=== PATIENT | female | born 1995 ===

== ENCOUNTER 2020-03-05 05:35 | Outpatient (RCR) | payer MEDICAID ==
[~2020-03-05] VITALS: Ht 170 cm; Wt 129.5 kg
[~2020-03-05 05:35] MED LIST: PREN1TAB79 PO
[2020-03-05] MEDS ORDERED: LABE200T7 PO ×2 (20:37)
[2020-03-09] MEDS ORDERED: DCS100C PO (07:09)
[2020-03-09] MEDS ORDERED: ACHD5005 PO (07:09)
[2020-03-09] MEDS ORDERED: IBUP-844 PO (07:09)
== END 2020-03-05 10:10 | disposition home or self-care (01) ==
LOC: EDBD → PREOP 05:35
PROVIDERS: ATTEND Obstetrics & Gynecology
DX: Z01.812 Encounter for preprocedural laboratory examination (principal); Z20.828 Contact with and (suspected) exposure to other viral communicable diseases
CPT/HCPCS: 87635

== ENCOUNTER 2020-03-05 18:26 | Outpatient (CLI) | payer MEDICAID ==
[2020-03-05] VITALS (7 sets, daily range): BP systolic 133–170; BP diastolic 70–82
[~2020-03-05] VITALS: Ht 170.2 cm; Wt 135.0 kg
--- NOTE | 2020-03-05 18:40 | NUR ---
SAMY TORRES presented to unit via ambulation from ED, accompanied by s/o, with c/o HTN. SAMY TORRES weighed, gowned, voided, and to bed. EFHM and TOCO applied, VS taken. SAMY TORRES oriented to bed controls, call light, TV, heat, and A/C controls.
[2020-03-05] MEDS ORDERED: LABETALOL 200 MG (NORMODYNE) TAB PO ONE ×2 (19:14→19:15)
--- NOTE | 2020-03-05 19:15 | NUR ---
Pt sent over from Dr's office for elevated b/p. Pt is a repeat c/s of 's scheduled for Monday. on unit. Goes into pt's room. Assessment performed. Order for labs and labetalol received. Plan of care discussed with pt. Pt denies any pre-e symptoms.
[2020-03-05 19:28] LABS: BASOPHILS % (AUTO) 0 % (0-10); EOSINOPHILS # (AUTO) 0.4 10^3/uL (0.0-0.3); EOSINOPHILS % (AUTO) 3 % (0-10); HEMATOCRIT 34 % (35-52); HEMOGLOBIN 11.1 g/dL (11.5-16.0); LYMPHOCYTES # (AUTO) 2.5 10^3/uL (1.0-4.0); LYMPHOCYTES % (AUTO) 20 % (12-44); MEAN CORPUSCULAR HEMOGLOBIN 29 pg (25-34); MEAN CORPUSCULAR HGB CONC 33 g/dL (32-36); MEAN CORPUSCULAR VOLUME 86 fL (80-99); MEAN PLATELET VOLUME 11.7 fL (9.0-12.2); MONOCYTES # (AUTO) 0.7 10^3/uL (0.0-1.0); MONOCYTES % (AUTO) 6 % (0-12); NEUTROPHILS # (AUTO) 8.8 10^3/uL (1.8-7.8); NEUTROPHILS % (AUTO) 70 % (42-75); PLATELET COUNT 247 10^3/uL (130-400); WHITE BLOOD COUNT 12.5 10^3/uL (4.3-11.0)
[2020-03-05 19:52] LABS: ALANINE AMINOTRANSFERASE 14 U/L (0-55); ALBUMIN 2.9 GM/DL (3.2-4.5); ALKALINE PHOSPHATASE 119 U/L (40-136); BILIRUBIN,TOTAL 0.2 MG/DL (0.1-1.0); BUN/CREATININE RATIO 10; CALCIUM 8.5 MG/DL (8.5-10.1); CARBON DIOXIDE 19 MMOL/L (21-32); CHLORIDE 108 MMOL/L (98-107); CREATININE SERUM 0.67 MG/DL (0.60-1.30); GFR ESTIMATED > 60; GLUCOSE 91 MG/DL (70-105); POTASSIUM 3.7 MMOL/L (3.6-5.0); SODIUM 136 MMOL/L (135-145); TOTAL PROTEIN 6.3 GM/DL (6.4-8.2); URIC ACID 5.1 MG/DL (2.6-7.2)
--- NOTE | 2020-03-05 20:30 | NUR ---
Labs sent to . discharge order received.
[2020-03-05] MEDS ORDERED: LABE200T7 PO ×2 (20:37)
--- NOTE | 2020-03-05 20:44 | NUR ---
Discharge instructions reviewed with patient. Pt verbalized understanding. Signature sheet signed, placed on chart. Pt denies needing wheelchair. Ambulating off unit to private vehicle at time with s.o. at side. No signs of distress noted. New prescription called to pharmacy.
--- NOTE | 2020-03-06 07:56 | Physician Query-Final Dx ---
ÁNGEL PASTOR 03/06/20 0756: Clinic Account Progress/Dx Physician Query: Please give diagnosis Please include # weeks gestation Date of Service Mar 05, 2020 at 18:26 BRIAN MARTINEZ DO 03/06/20 1430: Clinic Account Progress/Dx DIAGNOSIS: Diagnosis 38 WEEK IUP Non reactive NST in office Hx of Pre E w/ elevated BPs in office. ÁNGEL PASTOR Mar 06, 2020 07:56 BRIAN MARTINEZ DO Mar 06, 2020 14:30
[2020-03-09] MEDS ORDERED: ACHD5005 PO (07:09)
[2020-03-09] MEDS ORDERED: DCS100C PO (07:09)
[2020-03-09] MEDS ORDERED: IBUP-844 PO (07:09)
== END 2020-03-05 20:44 | disposition home or self-care (01) ==
LOC: WSo 18:26 → LDRP 18:35 → WSo 20:44
PROVIDERS: ATTEND Family Medicine
DX: Z34.93 Encounter for supervision of normal pregnancy, unspecified, third trimester (principal); Z3A.36 36 weeks gestation of pregnancy
CPT/HCPCS: 36415; 80053; 82570; 83615; 84156; 84550; 85025; 99213

== ENCOUNTER 2020-03-09 06:03 | Inpatient (IN) | payer MEDICAID ==
[~2020-03-09] VITALS: Ht 170.2 cm; Wt 133.5 kg
[2020-03-09] VITALS (9 sets, daily range): BP systolic 104–168; BP diastolic 57–97
[~2020-03-09 06:03] MED LIST changes: +LABE200T7 PO
--- NOTE | 2020-03-09 06:05 | NUR ---
SAMY TORRES presented to unit via from ED, accompanied by , for repeat section. SAMY TORRES weighed, gowned, voided, and to bed. EFHM and TOCO applied, VS taken. SAMY TORRES oriented to bed controls, call light, TV, heat, and A/C controls.
[2020-03-09] MEDS ORDERED: FAMOTIDINE 20MG/2ML IV (PEPCID) ONE (06:12)
[2020-03-09] MEDS ORDERED: CITRIC ACID/SOB CIT (BICITRA) 30 ML UDC ONE (06:12)
[2020-03-09] MEDS ORDERED: AMPICILLIN 2,000 MG/14.8 ML (IV USE) ONE (06:12)
[2020-03-09] MEDS ORDERED: METOCLOPRAMIDE INJ 10 MG/2 ML (REGLAN) ONE (06:14)
[2020-03-09] MEDS ORDERED: ceFAZolin 2 GM IV Premixed 50 ML IV ONE (06:22)
[2020-03-09 06:39] LABS: BASOPHILS # (AUTO) 0.1 10^3/uL (0.0-0.1); BASOPHILS % (AUTO) 1 % (0-10); EOSINOPHILS # (AUTO) 0.4 10^3/uL (0.0-0.3); EOSINOPHILS % (AUTO) 3 % (0-10); HEMATOCRIT 34 % (35-52); HEMOGLOBIN 11.2 g/dL (11.5-16.0); LYMPHOCYTES # (AUTO) 2.8 10^3/uL (1.0-4.0); LYMPHOCYTES % (AUTO) 23 % (12-44); MEAN CORPUSCULAR HEMOGLOBIN 28 pg (25-34); MEAN CORPUSCULAR HGB CONC 33 g/dL (32-36); MEAN CORPUSCULAR VOLUME 85 fL (80-99); MEAN PLATELET VOLUME 11.5 fL (9.0-12.2); MONOCYTES # (AUTO) 0.8 10^3/uL (0.0-1.0); MONOCYTES % (AUTO) 7 % (0-12); NEUTROPHILS # (AUTO) 8.2 10^3/uL (1.8-7.8); NEUTROPHILS % (AUTO) 67 % (42-75); PLATELET COUNT 246 10^3/uL (130-400); WHITE BLOOD COUNT 12.3 10^3/uL (4.3-11.0)
[2020-03-09] MEDS ORDERED: fentaNYL INJECTION 100 MCG/2 ML AMP ONE (07:01)
[2020-03-09] MEDS ORDERED: OXYTOCIN PRE-MIX DRIP 1,000 ML IV ONE (07:01)
--- NOTE | 2020-03-09 07:05 | History & Physical-OB ---
OB - Chief Complaint & HPI Date/Time Date of Admission: Date of Admission: Mar 09, 2020 at 06:03 Date seen by a Provider: Mar 09, 2020 Time Seen by a Provider: 07:00 Chief Complaint/History OB-Reason for Admission/Chief: Section Hx : 3 Hx Para: 2 Expected Date of Delivery: Mar 14, 2020 Gestational Age in Weeks: 39 Gestational Age in Days: 2 Indication for : desires repeat Admission Nurse Assessment Rev: Yes History of Labs [facility] care Allergies and Home Medications Allergies Coded Allergies: No Known Drug Allergies (Unverified , 03/04/20) Home Medications Labetalol HCl 200 Mg Tablet, 200 MG PO BID Prescribed by: NATHANIEL SCHROEDER on 03/05/202036 Vit W-Ca,Fe,FA(<1 mg) 1 Each Tablet, 1 EACH PO DAILY, (Reported) Patient Home Medication List Home Medication List Reviewed: Yes OB - History Hx of Present Care: Yes Ultrasounds: Normal mid trimester US Obstetrical Complications: None Medical Complications: None Delivery History Adverse Rxn to Tranfusion: No (N/A) Patient Past Medical History n/a Social History/Family History HIV/AIDS: No Sexually Transmitted Disease: No 2nd Hand Smoke Exposure: No Immunizations Date of Influenza Vaccine: Jan 26, 2020 OB - Admission Exam Physical Exam HEENT: NCAT Heart: Rhythm Normal Lungs: Clear Abdomen: Gravid Extremities: Normal Reflexes: Normal Heart Rate: 130's Accelerations: Accelerations Present Decelerations: No Decelerations Short Term Variability: Present Care Home Variability: Average (6-25) Contractions on Admission: >10 Minutes Apart Intensity: Mild Labs Laboratory Tests Test 03/09/20 06:25 Range/Units White Blood Count 12.3 H 4.3-11.0 10^3/uL Red Blood Count 4.02 3.80-5.11 10^6/uL Hemoglobin 11.2 L 11.5-16.0 g/dL Hematocrit 34 L 35-52 % Mean Corpuscular Volume 85 80-99 fL Mean Corpuscular Hemoglobin 28 25-34 pg Mean Corpuscular Hemoglobin Concent 33 32-36 g/dL Red Cell Distribution Width 13.4 10.0-14.5 % Platelet Count 246 130-400 10^3/uL Mean Platelet Volume 11.5 9.0-12.2 fL Immature Granulocyte % (Auto) 1 % Neutrophils (%) (Auto) 67 42-75 % Lymphocytes (%) (Auto) 23 12-44 % Monocytes (%) (Auto) 7 0-12 % Eosinophils (%) (Auto) 3 0-10 % Basophils (%) (Auto) 1 0-10 % Neutrophils # (Auto) 8.2 H 1.8-7.8 10^3/uL Lymphocytes # (Auto) 2.8 1.0-4.0 10^3/uL Monocytes # (Auto) 0.8 0.0-1.0 10^3/uL Eosinophils # (Auto) 0.4 H 0.0-0.3 10^3/uL Basophils # (Auto) 0.1 0.0-0.1 10^3/uL Immature Granulocyte # (Auto) 0.1 0.0-0.1 10^3/uL OB - Assessment/Plan/Diagnosis Assessment Assessment: section Admission Dx 24 yo @ 39.2 Previous x 2 Admission Status: Inpatient Order (span 2 midnights) Reason for Inpatient Admission: Repeat Plan Plan: Section BRIAN MARTINEZ DO Mar 09, 2020 07:05
--- NOTE | 2020-03-09 07:08 | Discharge Inst-Women's Service ---
Discharge Inst-Women's Serv Depart Medication/Instructions New, Converted or Re-Newed RX: RX on Chart Final Diagnosis POD 2 RLTCS Problems Reviewed?: Yes Consults/Follow Up Additional Follow Up: Yes Orders/Referrals Dr. Luo in 7-[address] Perez in 6 weeks. Activity Activity: Activity as Tolerated Driving Instructions: No Driving for 1 Week NO SMOKING: NO SMOKING Nothing Inside Vagina: No Douching, No [place], No Tampons Diet Discharge Diet: No Restrictions Symptoms to Report to : Bleeding Excessive, Pain Increased, Fever Over 101 Degrees F, Vaginal Bleeding Increase, Questions/Concerns For Any Problems or Questions: Contact Your Physician Skin/Wound Care Infection Signs and Symptoms: Increased Redness, Foul Odor of Wound, Increased Drainage, Skin Itchy or Has a Rash, Increased Swelling, Temperature Above 101 F Operative Area Clean and Dry: Keep Incision Clean/Dry Stitches/Palma/Dermabond: Dermabond, Care of Stitches Bathing Instructions: BRIAN Oates DO Mar 09, 2020 07:08
[2020-03-09] MEDS ORDERED: ACHD5005 PO (07:09)
[2020-03-09] MEDS ORDERED: IBUP-844 PO (07:09)
[2020-03-09] MEDS ORDERED: DCS100C PO (07:09)
[2020-03-09] MEDS ORDERED: TETANUS,DIPTH,PERTUSS P/F (BOOSTRIX) 0.5 ML VIAL IM SCH (07:15)
[2020-03-09] MEDS ORDERED: MEASLES,MUMPS,RUBELLA 1 EA INJ SC SCH (07:15)
[2020-03-09] MEDS ORDERED: ONDANSETRON 4 MG/2 ML (SDV) Z0FRAN IVP PRN (07:15)
[2020-03-09] MEDS ORDERED: HYDROcodone/APAP 5 MG/325 MG (LORTAB) TAB PO PRN (07:15)
[2020-03-09] MEDS ORDERED: HYDROmorphone 2 MG/ML VIAL (DILAUDID) ONE (07:20)
[2020-03-09] MEDS ORDERED: ONDANSETRON 4 MG/2 ML (SDV) Z0FRAN ONE (07:20)
[2020-03-09] MEDS ORDERED: OXYTOCIN PRE-MIX DRIP 500 ML IV ONE (07:21)
[2020-03-09] MEDS ORDERED: KETOROLAC 30 MG/ML VIAL ONE (07:21)
[2020-03-09] MEDS ORDERED: PHENYLEPHRINE 100 MCG/ML 10 ML (ANESTHESIA) SYR ONE (07:59)
[2020-03-09] MEDS ORDERED: BUPIVACAINE 0.5% 30 ML (SENSORCAINE) VIAL ONE (08:14)
[2020-03-09] MEDS ORDERED: CATHETER FLUSH 10 ML SYR IV PRN (08:30)
[2020-03-09] MEDS ORDERED: LACTATED RINGERS 1,000 ML IV PRN (08:30)
[2020-03-09] MEDS ORDERED: METOCLOPRAMIDE INJ 10 MG/2 ML (REGLAN) IV ONE (08:30)
[2020-03-09] MEDS ORDERED: FAMOTIDINE 20MG/2ML IV (PEPCID) IV ONE (08:30)
[2020-03-09] MEDS ORDERED: CITRIC ACID/SOB CIT (BICITRA) 30 ML UDC PO ONE (08:30)
[2020-03-09] MEDS: OXYTOCIN PRE-MIX DRIP 500 ML IV SCH ×2 (08:53→14:51)
[2020-03-09] MEDS: KETOROLAC 30 MG/ML VIAL IV SCH ×3 (08:54→21:26)
--- NOTE | 2020-03-09 12:07 | NUR ---
Fundus firm U/2 with small rubra lochia noted. No clots. Pritchett DC'd at this time. Pericare completed. Clean pad and panties applied.
[2020-03-09] MEDS: DOCUSATE SODIUM 100 MG (COLACE) CAP PO SCH ×2 (13:56→21:25)
[2020-03-09] MEDS ORDERED: CATHETER FLUSH 10 ML SYR IV SCH (14:00)
--- NOTE | 2020-03-09 14:29 | OPERATIVE REPORT ---
DATE OF SERVICE: PREOPERATIVE DIAGNOSES: 1. A 24-year-old G3, P2 at 39 weeks gestation. 2. Previous section. POSTOPERATIVE DIAGNOSES: 1. A 24-year-old G3, P2 at 39 weeks gestation. 2. Previous section. PROCEDURE: Repeat low transverse section. SURGEON: Claude Luo DO ANESTHESIA: Spinal. ESTIMATED BLOOD LOSS: 500 mL. URINE OUTPUT: 50 mL clear at the end of procedure. FLUIDS: 1800 mL lactated Ringer's solution. FINDINGS: A live female weighing 7 pounds 14 ounces, Apgars of 8 and 9. Grossly normal appearing uterus, bilateral fallopian tubes and ovaries. Filmy adhesions of the vesicouterine peritoneum and omentum to the anterior serosal surface of the uterus. SPECIMEN SENT: None. INDICATIONS FOR PROCEDURE: This 24-year-old female is a patient, who had sought care with Dr. Perez. Her care was uncomplicated with some mild elevation in her blood pressure towards the last week of her . Otherwise, there were no concerns. She was scheduled for 39 weeks for repeat in her preoperative visit in the office. Risks of the procedure were discussed with the patient in detail including risk of bleeding, infection, damage to surrounding structures including, but not limited to bowel, bladder, ureter, kidneys, possible need for reoperation, postoperative complications that may occur, risk from anesthesia, recovery timeframe and even . After everything was discussed with the patient in detail, consent was obtained in the preoperative area and the patient was taken to the operating room. OPERATIVE REPORT IN DETAIL: Once in the operating room, spinal analgesia was found to be adequate, placed in the supine position with leftward tilt, prepped and draped in normal sterile fashion. A timeout was performed and anesthesia was tested. I then make a Pfannenstiel skin incision through the previously existing scar using knife and carried down to underlying fascia using Bovie cautery. The fascial incision extended laterally using Bovie cautery. The superior aspect of fascial incision was then grasped with Adal clamps, tented up and dissected off the underlying rectus muscles. The inferior aspect of fascial incision was then grasped with Adal clamps, tented up and dissected off the underlying rectus muscles. Rectus muscles were then dissected down the midline using Atkins scissors, which exposed the peritoneum, which I entered bluntly and extended using blunt traction. Sergio ring retractor was placed in the peritoneal incision, which offers excellent lateral sidewall retraction some filmy adhesions of the vesicouterine peritoneum and to be taken down in the process of doing this. I then identified the lower uterine segment, which was found to be thinned out and make a low transverse incision to the vesicouterine peritoneum and bluntly dissected off the lower uterine segment, creating a bladder flap. I then proceeded with myotomy until membranes were visualized, at which point I extended the uterine incision laterally and superiorly using bandage scissors. Amniotomy was performed in the process of doing this, clear fluid was noted. Infant was found in vertex presentation. With gentle fundal pressure, the 's head was elevated up the incision where the nares and oropharynx were bulb suctioned. Anterior and posterior shoulders were delivered. Nuchal cord was reduced x1 and the was then brought to the operative field with cord doubly clamped and cut and infant was handed off to waiting nurses and Dr. Perez, who was in attendance. Cord blood was collected. Three-vessel cord with intact placenta was delivered spontaneously thereafter. IV Pitocin was initiated to facilitate uterine contraction. Uterine fundus confirmed by manual massage. Uterus was exteriorized and cleared of all endometrial clots and debris. I then proceeded with closing the uterine incision using 0 Vicryl suture in running locked fashion. Second layer of imbricating 0 Monocryl was placed. Excellent hemostasis was noted after doing this. We then placed the uterus back in the pelvis, copiously irrigated the pelvis using normal saline. Once again, there was no active bleeding noted from any of my dissection planes. I placed Interceed an upside down T formation due to filmy adhesions of the uterine serosa to cover these adhesion sites on the uterus. I then removed the Sergio ring retractor and proceeded with closing the peritoneum and rectus muscles in a running fashion using 3-0 Vicryl suture. The fascia was then reapproximated using 0 Vicryl suture in running fashion. Subcutaneous tissue was reapproximated using 3-0 plain interrupted subcutaneous stitch and skin reapproximated using 4-0 Monocryl running subcuticular. Dermabond was applied to incision and sterile dressing with adhesive white tape. The patient tolerated the procedure well and sent to recovery in stable condition. Lap and sponge counts were correct at the end of the procedure. Instrument counts correct as well. Two grams of Ancef given preoperatively for infection prophylaxis. Job ID: [id number] DocumentID: [id number] Dictated Date: 03/09/2020 08:24:34 [employer]her And Crusher Tender Date: 03/09/2020 14:27:54 Dictated By: DO ANJALI SANTORO
--- NOTE | 2020-03-09 15:00 | NUR ---
Patient ambulated to restroom without difficulties. + void noted. Pericare completed and clean pad and panties applied. Patient ambulated back to bed without difficulties. Patient updated on plan of care. Patient verbalizes understanding and questions answered.
[2020-03-09] MEDS ORDERED: ONDANSETRON 4 MG/2 ML (SDV) Z0FRAN IV PRN (19:00)
[2020-03-09] MEDS ORDERED: NALOXONE 0.4 MG/ML 1 ML (NARCAN) VIAL IV PRN (19:00)
[2020-03-09] MEDS ORDERED: diphenhydrAMINE 50 MG/ML INJ (BENADRYL) IV PRN (19:00)
--- NOTE | 2020-03-09 19:25 | NUR ---
Report to Carolina Earl RN.
[2020-03-10 01:00] VITALS: BP 147/71
[2020-03-10] MEDS: KETOROLAC 30 MG/ML VIAL IV SCH (04:57)
[2020-03-10 05:15] VITALS: BP 139/84
[2020-03-10 06:14] LABS: BASOPHILS % (AUTO) 0 % (0-10); EOSINOPHILS # (AUTO) 0.2 10^3/uL (0.0-0.3); EOSINOPHILS % (AUTO) 1 % (0-10); HEMATOCRIT 32 % (35-52); HEMOGLOBIN 10.2 g/dL (11.5-16.0); LYMPHOCYTES # (AUTO) 2.3 10^3/uL (1.0-4.0); LYMPHOCYTES % (AUTO) 16 % (12-44); MEAN CORPUSCULAR HEMOGLOBIN 28 pg (25-34); MEAN CORPUSCULAR HGB CONC 32 g/dL (32-36); MEAN CORPUSCULAR VOLUME 88 fL (80-99); MEAN PLATELET VOLUME 11.7 fL (9.0-12.2); MONOCYTES # (AUTO) 0.8 10^3/uL (0.0-1.0); MONOCYTES % (AUTO) 5 % (0-12); NEUTROPHILS # (AUTO) 11.2 10^3/uL (1.8-7.8); NEUTROPHILS % (AUTO) 77 % (42-75); PLATELET COUNT 206 10^3/uL (130-400); WHITE BLOOD COUNT 14.5 10^3/uL (4.3-11.0)
--- NOTE | 2020-03-10 07:34 | Postpartum Progress Note ---
Note Note Day # 1 Subjective: Patient is without complaints. Ambulating, voiding. Tolerating a regular diet without nausea or vomiting. Normal lochia. Pain is well controlled with oral pain medications. Objective: Physical Exam: General - Alert and oriented, no apparent distress Abdomen - Soft, appropriately tender to palpation, non-distended, fundus firm at umbilicus Extremities - no edema, negative Chuck's bilaterally Incision: c/d/i Assessment: POD 1 RLTCS Acute blood loss anemia Plan: Routine care. Encourage breast feeding. Encourage ambulation. Ferrous sulfate supplementation. Plan for discharge tomorrow Vitals - Labs Vital Signs - I&O Vital Signs Date Time Temp Pulse Resp B/P (MAP) Pulse Ox O2 Delivery O2 Flow Rate FiO2 03/10/20 05:15 36.1 88 18 139/84 (102) 97 Room Air 03/10/20 01:00 36.3 83 18 147/71 (96) 97 Room Air 03/09/20 21:00 37.2 91 18 142/79 (100) 97 Room Air 03/09/20 16:04 36.8 84 18 145/93 (110) 97 Room Air 03/09/20 12:07 36.9 91 18 154/76 (102) 97 Room Air 03/09/20 09:45 Room Air 03/09/20 09:45 36.3 18 146/97 (113) 98 Room Air 03/09/20 09:30 36.5 18 168/75 (106) 99 Room Air 03/09/20 09:30 Room Air 03/09/20 09:15 36.2 18 146/86 (106) 98 Room Air 03/09/20 09:15 Room Air 03/09/20 09:00 36.3 18 133/69 (90) 98 Room Air 03/09/20 09:00 Room Air 03/09/20 08:46 Room Air 03/09/20 08:46 36.3 18 104/57 (73) 97 Room Air 03/09/20 08:36 36.5 85 20 98 Room Air I & O 03/10/20 07:00 Intake Total 4350 ml Output Total 1650 ml Balance 2700 ml Labs Laboratory Tests 03/10/20 05:55: White Blood Count 14.5H, Red Blood Count 3.60L, Hemoglobin 10.2L, Hematocrit 32L , Mean Corpuscular Volume 88, Mean Corpuscular Hemoglobin 28, Mean Corpuscular Hemoglobin Concent 32, Red Cell Distribution Width 13.4, Platelet Count 206, Mean Platelet Volume 11.7, Immature Granulocyte % (Auto) 1, Neutrophils (%) (Auto) 77H, Lymphocytes (%) (Auto) 16, Monocytes (%) (Auto) 5, Eosinophils (%) (Auto) 1, Basophils (%) (Auto) 0, Neutrophils # (Auto) 11.2H, Lymphocytes # (Auto) 2.3, Monocytes # (Auto) 0.8, Eosinophils # (Auto) 0.2, Basophils # (Auto) 0.0, Immature Granulocyte # (Auto) 0.1 BRIAN MARTINEZ DO Mar 10, 2020 07:34
[2020-03-10 10:07] VITALS: BP 143/83
[2020-03-10] MEDS: DOCUSATE SODIUM 100 MG (COLACE) CAP PO SCH ×2 (10:11→20:45)
[2020-03-10] MEDS: IBUPROFEN 600 MG (MOTRIN) TAB PO SCH ×3 (12:27→23:44)
--- NOTE | 2020-03-10 13:54 | Anesthesia-Regional Post-Op ---
Regional Patient Condition Mental Status: Alert, Oriented x3 Circulation: Same as Pre-Op Headache: Absent Sensation: Full Recovery Motor Block: Absent Post Op Complications Complications None Follow Up Care/Instructions Patient Instructions None needed. Anesthesia/Patient Condition Patient is doing well, no complaints, stable vital signs, no apparent adverse anesthesia problems. MARY MIRZA DO Mar 10, 2020 13:54
[2020-03-10 17:50] VITALS: BP 141/85
--- NOTE | 2020-03-10 21:11 | NUR ---
PT RESTING IN BED HOLDING NB. ASSESSMENT COMPLETED. PT DENIES ANY NEEDS. WILL CONTINUE TO MONITOR.
[2020-03-10 23:54] VITALS: BP 140/73
[2020-03-11 05:57] VITALS: BP 132/71
[2020-03-11] MEDS: IBUPROFEN 600 MG (MOTRIN) TAB PO SCH ×2 (05:57→13:00)
--- NOTE | 2020-03-11 08:30 | Postpartum Progress Note ---
Note Note Day # 2 Subjective: Patient is without complaints. Ambulating, voiding. Tolerating a regular diet without nausea or vomiting. Normal lochia. Pain is well controlled with oral pain medications. Objective: Physical Exam: General - Alert and oriented, no apparent distress Abdomen - Soft, appropriately tender to palpation, non-distended, fundus firm at umbilicus Extremities - no edema, negative Chuck's bilaterally Incision- c/d/i Assessment: POD 2 RLTCS Plan: Routine care. Encourage breast feeding. Encourage ambulation. Ferrous sulfate supplementation. Plan for discharge today Vitals - Labs Vital Signs - I&O Vital Signs Date Time Temp Pulse Resp B/P (MAP) Pulse Ox O2 Delivery O2 Flow Rate FiO2 03/11/20 05:57 36.8 74 16 132/71 (91) 96 Room Air 03/10/20 23:54 37.0 86 16 140/73 (95) 96 Room Air 03/10/20 17:50 36.2 83 16 141/85 (103) 96 Room Air 03/10/20 10:07 35.9 92 18 143/83 (103) 97 Room Air BRIAN MARTINEZ DO Mar 11, 2020 08:30
[2020-03-11 09:22] VITALS: BP 136/92
--- NOTE | 2020-03-11 09:22 | NUR ---
initial shift assessment completed, see interventions for further. POC reviewed, states understanding.
[2020-03-11] MEDS ORDERED: IBUPROFEN 600 MG (MOTRIN) TAB PO SCH (12:00)
--- NOTE | 2020-03-11 12:10 | NUR ---
dismissal instructions given, verbalizes understanding. reviewed follow up appointments and medications. signature page signed, placed on chart
[2020-03-11] MEDS: DOCUSATE SODIUM 100 MG (COLACE) CAP PO SCH (13:00)
--- NOTE | 2020-03-11 13:05 | NUR ---
pt dismissed to private vehicle via w/c with this RN and infant. secured in rear facing car seat, placed on mother's lap. mother stable with no sx's of distress noted.
== END 2020-03-11 13:05 | disposition home or self-care (01) | DRG 787 ==
LOC: EDBD → LDRP 06:03
PROVIDERS: ADMIT Obstetrics & Gynecology; ATTEND Obstetrics & Gynecology
PROC: 10D00Z1 Extraction of Products of Conception, Low, Open Approach (ICD-10-PCS; principal; 2020-03-09 07:30)
DX: O34.211 Maternal care for low transverse scar from previous cesarean delivery (principal); D62 Acute posthemorrhagic anemia; Z3A.39 39 weeks gestation of pregnancy; Z37.0 Single live birth; O90.81 Anemia of the puerperium
CPT/HCPCS: 36415; 85025; 86850; 86900; 86901